=== PATIENT | male | born 1945 ===

== ENCOUNTER 2024-10-17 06:54 | Day surgery (SDC) | payer OTHER ==
[2024-10-17] MEDS ORDERED: DIPHENHYDRAMINE HCL 50 MG/ML VIAL 1ML IV ONE (10:15)
[2024-10-17] MEDS ORDERED: fentaNYL CITRATE 50 MCG/ML AMPUL IV PUSH ONE (10:15)
[2024-10-17] MEDS ORDERED: MIDAZOLAM HCL 2 MG/2 ML VIAL IV ONE (10:15)
== END 2024-10-17 11:30 | disposition home or self-care (01) ==
LOC: AMB-ENDOS 06:54
PROVIDERS: ATTEND Colon & Rectal Surgery
DX: C20 Malignant neoplasm of rectum (principal); K62.6 Ulcer of anus and rectum; Z88.6 Allergy status to analgesic agent

== ENCOUNTER 2024-12-05 09:33 | Inpatient (IN) | payer OTHER ==
[~2024-12-05] VITALS: Ht 30.5 cm; Wt 99.8 kg
[2024-12-05] MEDS ORDERED: FOLIC ACID1 MG PO (09:59)
[2024-12-05] MEDS ORDERED: AVAPRO150 MG (09:59)
[2024-12-05] MEDS ORDERED: VITAMIN B-121000 MC4 (10:00)
[2024-12-05] MEDS ORDERED: NOXIFOL-D32500 UNIT (10:00)
[2024-12-05] MEDS ORDERED: ZYLOPRIM100 M1 (10:02)
[2024-12-13] MEDS ORDERED: CEFTRIAXONE SODIUM 2,000 MG VIAL ONE (11:29)
[2024-12-13] MEDS ORDERED: METRONIDAZOLE/SODIUM CHLORIDE 500 MG/100 ML PIGGYBACK IV ONE (11:29)
[2024-12-13] MEDS ORDERED: BUPIVACAINE HCL/MPF 0.5% 30ML VIAL ONE (13:19)
[2024-12-13] MEDS ORDERED: DIBUCAINE 30 GM TUBE ONE (13:19)
[2024-12-13] MEDS ORDERED: HEMOSTATIC MATRIX 1 KIT KIT TOP ONE (13:20)
[2024-12-13] MEDS ORDERED: POVIDONE-IODINE 118 ML BOTT TOP ONE (13:20)
[2024-12-13] MEDS ORDERED: LIDOCAINE HCL 1%/EPINEPHRINE 20ML VIAL IJ ONE (13:20)
[2024-12-13] MEDS ORDERED: SUGAMMADEX SODIUM 200 MG/2 ML VIAL IV ONE (14:40)
[2024-12-13] MEDS ORDERED: ONDANSETRON HCL 2 MG/ML VIAL IV PRN (15:00)
[2024-12-13] MEDS ORDERED: MORPHINE SULFATE 4 MG/ML CARTRIDGE IV PRN (15:00)
[2024-12-13] MEDS ORDERED: OxyCODONE HCL 5 MG TABLET (ROXICODONE) PO PRN (15:00)
[2024-12-13] MEDS ORDERED: RINGERS SOLUTION,LACTATED 1,000 ML IV SCH (15:00)
[2024-12-13] MEDS ORDERED: HYOSCYAMINE SULFATE 0.125 MG TAB.SUBL SL SCH (17:00)
[2024-12-13] MEDS ORDERED: GABAPENTIN 300 MG CAPSULE PO SCH (17:00)
[2024-12-13] MEDS ORDERED: CELECOXIB 200 MG CAPSULE PO SCH (17:00)
[2024-12-13] MEDS ORDERED: METOCLOPRAMIDE HCL 5 MG/ML VIAL IV SCH (17:00)
[2024-12-13] MEDS ORDERED: SIMETHICONE 125 MG CAPSULE PO SCH (17:00)
[2024-12-13] MEDS ORDERED: HYOSCYAMINE SULFATE 0.125 MG TAB.SUBL ONE (17:33)
[2024-12-13] MEDS ORDERED: CELECOXIB 200 MG CAPSULE PO ONE (17:33)
[2024-12-13] MEDS ORDERED: GABAPENTIN 300 MG CAPSULE PO ONE (17:34)
[2024-12-13] MEDS ORDERED: SIMETHICONE 125 MG CAPSULE PO ONE (17:34)
[2024-12-13] MEDS ORDERED: METOCLOPRAMIDE HCL 5 MG/ML VIAL ONE (17:36)
[2024-12-13] MEDS ORDERED: INSULIN LISPRO 1,000 UNIT/10 ML UNITS SUBCUTANEO PRN (18:45)
[2024-12-13] MEDS ORDERED: DEXTROSE 50 % IN WATER 0.5 G/ML VIAL IV PRN (18:45)
[2024-12-13 18:48] VITALS: BP 149/75; O2SAT 98
[2024-12-13 18:58] LABS: BASO % 0.3 % (0.1-1.2); EOS # 0.06 (0.04-0.54); EOS % 0.9 % (0.7-7.0); LYMPH # 1.19 (1.18-3.74); LYMPH % 17.2 % (19.3-53.1); MEAN PLATELET VOLUME 9.60 fl (9.4-12.4); MONO # 0.52 (0.24-0.82); MONO % 7.5 % (4.7-12.5); NEUT # 5.12 (1.56-6.13); NEUT % 73.8 % (34.0-71.1); RED CELL DISTRIBUTION WIDTH 14.9 % (11.6-14.4)
[2024-12-13 19:59] LABS: ABG PO2 91.6 mmHg (80-100); BICARBONATE 19.0 mmol/l (23-25); o2 21 %
[2024-12-13] MEDS ORDERED: ACETAMINOPHEN 500 MG GEL..CAP PO SCH (20:00)
[2024-12-13 20:01] LABS: ABG PH 7.334 (7.35-7.45)
[2024-12-13] MEDS ORDERED: FAMOTIDINE/PF 20 MG/2 ML VIAL IV PUSH SCH (21:00)
[2024-12-14 01:55] VITALS: BP 126/67; O2SAT 98
[2024-12-14 06:53] LABS: BASO % 0.4 % (0.1-1.2); EOS # 0.16 (0.04-0.54); EOS % 3.2 % (0.7-7.0); LYMPH # 1.08 (1.18-3.74); LYMPH % 21.7 % (19.3-53.1); MEAN PLATELET VOLUME 9.50 fl (9.4-12.4); MONO # 0.46 (0.24-0.82); MONO % 9.2 % (4.7-12.5); NEUT # 3.25 (1.56-6.13); NEUT % 65.3 % (34.0-71.1); RED CELL DISTRIBUTION WIDTH 14.5 % (11.6-14.4)
[2024-12-14 07:21] LABS: BUN CREA RATIO 12.0 (7.0-25.0); CREATININE SERUM 1.87 mg/dL (0.70-1.30); GFR 35.09; GLUCOSE FASTING 89.0 mg/dL (65-100); OSMOLALITY SERUM 291.0 MOSM/KG (275-295)
[2024-12-14 08:31] VITALS: BP 135/71; O2SAT 95
[2024-12-14] MEDS ORDERED: IRBESARTAN 150 MG TABLET PO SCH (09:00)
[2024-12-14] MEDS ORDERED: LACTOBACILLUS ACIDOPHILUS 1 CAP CAP PO SCH (09:00)
[2024-12-14] MEDS ORDERED: LACTULOSE 20 G/30 ML BLIST.PACK PO SCH (09:00)
[2024-12-14] MEDS ORDERED: ATORVASTATIN CALCIUM 10 MG TABLET PO SCH (17:00)
[2024-12-14] MEDS ORDERED: ENOXAPARIN SODIUM 40 MG/0.4 ML SYRINGE SUBCUTANEO SCH (17:00)
[2024-12-15] MEDS ORDERED: ENOXAPARIN SODIUM 40 MG/0.4 ML SYRINGE SUBCUTANEO SCH (09:00)
== END 2024-12-14 18:47 | disposition home or self-care (01) | DRG 375 ==
LOC: O/R 12-13 10:00 → SURH 12-13 12:15
PROVIDERS: Internal Medicine Geriatric Medicine; ADMIT Colon & Rectal Surgery; ATTEND Colon & Rectal Surgery
PROC: 0DJD8ZZ Inspection of Lower Intestinal Tract, Via Natural or Artificial Opening Endoscopic (ICD-10-PCS; 2024-12-13)
PROC: 4A12X4Z Monitoring of Cardiac Electrical Activity, External Approach (ICD-10-PCS; 2024-12-13)
PROC: 0DBP8ZZ Excision of Rectum, Via Natural or Artificial Opening Endoscopic (ICD-10-PCS; principal; 2024-12-13 17:15)
DX: C20 Malignant neoplasm of rectum (principal); K92.1 Melena; Z85.048 Personal history of other malignant neoplasm of rectum, rectosigmoid junction, and anus; E11.9 Type 2 diabetes mellitus without complications; I11.9 Hypertensive heart disease without heart failure; E78.00 Pure hypercholesterolemia, unspecified; N18.30 Chronic kidney disease, stage 3 unspecified; D50.9 Iron deficiency anemia, unspecified; I44.0 Atrioventricular block, first degree
CPT/HCPCS: 0184T; 45123; 45300; 93228